=== PATIENT | male | born 1945 | race Hispanic/Latino ===

== ENCOUNTER → 2019-07-16 | Day surgery (SDC) | payer MEDICARE, OTHER ==
[2019-07-12 13:02] LABS: BASOPHILS % 0.6 % (0.0-1.0); EOSINOPHILS # (AUTO) 0.1 (0.0-0.4); HEMATOCRIT 42.3 % (38.2-49.6); HEMOGLOBIN 14.3 g/dL (14.0-18.0); LYMPHOCYTES # (AUTO) 1.5 (1.0-3.2); LYMPHOCYTES % 28.2 % (18.0-39.1); MEAN CORPUSCULAR HEMOGLOBIN 32.1 pg (28-32); MEAN CORPUSCULAR HGB CONC 33.8 g/dL (31-35); MEAN CORPUSCULAR VOLUME 95.1 fL (81-99); MONOCYTES # (AUTO) 0.6 (0.2-0.8); MONOCYTES % 11.4 % (4.4-11.3); NEUTROPHILS # (AUTO) 3.1 (2.1-6.9); NEUTROPHILS % 57.6 % (38.7-80.0); PLATELET COUNT 158 x10e3/uL (140-360); RED BLOOD COUNT 4.45 x10e6/uL (4.3-5.7); RED CELL DISTRIBUTION WIDTH 12.9 % (11.7-14.4)
[2019-07-12 13:26] LABS: ALANINE AMINOTRANSFERASE 17 IU/L (0-55); ALBUMIN/GLOBULIN RATIO 1.1 (0.8-2.0); ALKALINE PHOSPHATASE 88 IU/L (40-150); ANION GAP 9.4 mmol/L (8-16); BLOOD UREA NITROGEN 17 mg/dL (7-26); BUN/CREATININE RATIO 18 (6-25); CALCIUM 9.6 mg/dL (8.4-10.2); CARBON DIOXIDE 29 mmol/L (22-29); CHLORIDE 105 mmol/L (98-107); CREATININE, SERUM 0.96 mg/dL (0.72-1.25); EST GLOMERULAR FILTRATION RATE > 60 ML/MIN (60-); GLUCOSE 105 mg/dL (74-118); POTASSIUM 4.4 mmol/L (3.5-5.1); SODIUM 139 mmol/L (136-145)
[~2019-07-16] MED LIST: ALPRAZOLAM 0.5 MG TAB ONE; DIPHENHYDRAMINE HCL 25 MG CAP ONE; FENOFIBRATE145 MG PO; FENTANYL CITRATE/PF 100MCG/2 ML INJ ONE; FLOMAX0.4 MG PO; HEPARIN SOD/SOD CHLORIDE 2,000 ML ONE; IOPAMIDOL 370 MG/ML 200 ML INFUS..BTL INJ ONE; LIDOCAINE HCL 2% LOCAL 20 ML VIAL ONE; METOPROLOL TART50 MG PO; MIDAZOLAM HCL 2 MG/2 ML VIAL ONE; SODIUM CHLORIDE 0.9% 1000ML 1,000 ML ONE; [UNRECOGNIZED DRUG - OTHER] IJ
[2019-07-16 12:00] VITALS: BP 150/83
--- NOTE | 2019-07-16 12:00 | NUR ---
1200noon Received pt to rm #[phone] for CCL preop ABNORMAL Stress test [facility] DR Morgan stent groin approach.Preops and iv to rt forearm per Ramesh HERR.Hand off to Yevgeniy HERR. in waiting room ds/rn
[2019-07-16 12:51] VITALS: BP 131/64
--- NOTE | 2019-07-16 12:51 | NUR ---
1251pm RECEIVING NOTE [facility] [employer] [employer]............................................................... Bedside report received from Yevgeniy HERR. Identifierx2. Alert oriented and appropriate, PERRLA, respirations even and unlabored to room air. Pulses x4 extremities equal and strong. Pedal pulses PT/DP X4 and marked. Cap fill brisk < 3 sec. Rt Mynx site with no gross issues hematoma or oozing.For dc home at 1430pm Skin warm and dry integrity appears D/I IV 20g to rt arm, presents healthy w/o s/s of infiltration or complaint. Abdomen soft and supple. pt offered toileting, denies need to urinate or defecate. No personal affects with patient. Family in waiting. Pt and family verbalizes understanding of POC. Currently w/o complaint of pain or need. ds/rn
[2019-07-16 13:15] VITALS: BP 118/77
[2019-07-16 13:25] VITALS: BP 128/72
--- NOTE | 2019-07-16 14:28 | Operative Report ---
DATE OF PROCEDURE: 07/16/2019 SURGEON: Prakash Morgan MD INDICATIONS: Coronary artery disease, unstable angina, and abnormal stress test. PROCEDURES PERFORMED: 1. Left heart catheterization, selective coronary angiography. 2. Selective cannulation of two venous bypass conduits. 3. Conscious sedation administration, hemodynamic and neurological monitoring and recovery by mason tender restoration labor RN, supervision by 35 minutes. 4. Deployment of right groin Mynx closure device. COMPLICATIONS: None. ESTIMATED BLOOD LOSS: Minimal. RECOMMENDATIONS: Medical therapy. DESCRIPTION OF PROCEDURE: Access was obtained in the right femoral artery. A 6-Arabic sheath was placed. Coronary angiography demonstrated calcified left main circumflex and left anterior descending artery was occluded. Right coronary artery diffuse 90% stenosis. Left internal mammary artery was not identified and appeared to be absent and not used for coronary bypass. Saphenous vein bypass to left anterior descending artery 50% distal stenosis. Saphenous vein bypass to the right posterior descending artery was widely patent. No intervention deemed necessary. Right groin repaired using Mynx closure device. The patient discharged home the same day. Prakash Morgan MD [facility] /[id number]
[2019-07-16 14:30] VITALS: BP 122/72
--- NOTE | 2019-07-16 14:30 | NUR ---
1430pm [employer] DISCHARGE NURSING NOTE Pt meets DC criteria. Rt groin Mynx assessed for s/s of complication and presence of hematoma. Skin warm, dry, no discolor, and pulses present. IV removed from rt fA Distal tip appears intact. VS WNL. Pt denies pain, sob, or need at this time. Family at XXXXX. Review of discharge paperwork and follow up instructions. verbalized understanding. Pt to wheelchair and transported to front of hospital. Transferred to private vehicle under own strength w/o incident with DC paperwork in hand. - roddy/rhiannon
[2019-07-18 08:30] VITALS: BP 117/62
[2019-07-18 08:45] VITALS: BP 114/74
[2019-07-18 09:00] VITALS: BP 134/74
== END | disposition home or self-care (01) ==
LOC: CATH LAB 09:43
PROVIDERS: ATTEND Internal Medicine Interventional Cardiology
DX: I25.700 Atherosclerosis of coronary artery bypass graft(s), unspecified, with unstable angina pectoris (principal); I10 Essential (primary) hypertension; E78.00 Pure hypercholesterolemia, unspecified; R94.39 Abnormal result of other cardiovascular function study; Z01.812 Encounter for preprocedural laboratory examination; Z11.59 Encounter for screening for other viral diseases; Z79.82 Long term (current) use of aspirin; Z95.1 Presence of aortocoronary bypass graft
CPT/HCPCS: 36415; 80053; 85025; 87635; 93459; C1760; J2001; J2250; J3010; J7030; Q9967; 93455; 99152; 99153

== ENCOUNTER → 2020-08-04 | Day surgery (SDC) | payer MEDICARE, OTHER ==
[2020-07-30 11:12] LABS: BASOPHILS % 0.8 % (0.0-1.0); EOSINOPHILS # (AUTO) 0.2 (0.0-0.4); EOSINOPHILS % 4.3 % (0.0-6.0); LYMPHOCYTES # (AUTO) 1.4 (1.0-3.2); LYMPHOCYTES % 26.3 % (18.0-39.1); MEAN CORPUSCULAR HEMOGLOBIN 31.1 pg (28-32); MEAN CORPUSCULAR HGB CONC 32.5 g/dL (31-35); MEAN CORPUSCULAR VOLUME 95.7 fL (81-99); MONOCYTES # (AUTO) 0.5 (0.2-0.8); MONOCYTES % 10.3 % (4.4-11.3); NEUTROPHILS % 58.1 % (38.7-80.0); PLATELET COUNT 151 x10e3/uL (140-360); RED BLOOD COUNT 4.18 x10e6/uL (4.3-5.7); RED CELL DISTRIBUTION WIDTH 13.2 % (11.7-14.4)
[2020-07-30 11:30] LABS: ALANINE AMINOTRANSFERASE 25 IU/L (0-55); ALBUMIN 3.8 g/dL (3.5-5.0); ALBUMIN/GLOBULIN RATIO 1.1 (0.8-2.0); ALKALINE PHOSPHATASE 81 IU/L (40-150); ANION GAP 10.2 mmol/L (8-16); BLOOD UREA NITROGEN 15 mg/dL (7-26); BUN/CREATININE RATIO 15 (6-25); CARBON DIOXIDE 25 mmol/L (22-29); CHLORIDE 107 mmol/L (98-107); CREATININE, SERUM 0.98 mg/dL (0.72-1.25); EST GLOMERULAR FILTRATION RATE > 60 ML/MIN (60-); GLUCOSE 117 mg/dL (74-118); POTASSIUM 4.2 mmol/L (3.5-5.1); SODIUM 138 mmol/L (136-145)
[~2020-08-04] VITALS: Ht 175.3 cm; Wt 89.4 kg
[~2020-08-04] MED LIST changes: +CLOPIDOGREL75 MG PO; +IOPAMIDOL 300MG/ML 100 ML INFUS..BTL IV ONE; -IOPAMIDOL 370 MG/ML 200 ML INFUS..BTL INJ ONE
[2020-08-04 13:30] VITALS: BP 164/86
[2020-08-04 17:30] VITALS: BP 122/73
[2020-08-04 17:45] VITALS: BP 117/75
[2020-08-04 18:00] VITALS: BP 140/78
[2020-08-04 18:15] VITALS: BP 124/75
[2020-08-04 18:30] VITALS: BP 122/78
== END | disposition home or self-care (01) ==
LOC: CATH LAB 13:12
PROVIDERS: ATTEND Internal Medicine Interventional Cardiology
DX: I73.9 Peripheral vascular disease, unspecified (principal); Z01.812 Encounter for preprocedural laboratory examination; Z20.822 Contact with and (suspected) exposure to COVID-19; Z95.1 Presence of aortocoronary bypass graft
CPT/HCPCS: 36247; 36415; 75625; 75716; 76937; 80053; 85025; C1760; C1769 ×2; C1894; J2001; J2250; J3010; J7030; Q9967; U0002; 99152